=== PATIENT | female | born 1990 | race Hispanic/Latino ===

== ENCOUNTER 2018-08-29 17:43 | Emergency (ER) | payer SELFPAY ==
--- NOTE | 2018-08-29 21:24 | ULT ---
PELVIC SONOGRAM TRANSABDOMINAL AND TRANSVAGINAL IMAGING WITH DUPLEX EVALUATION 08/29/18 HISTORY: Pelvic pain. Fibroid disease. FINDINGS: Uterus has a heterogeneous echotexture and is 10.4 cm. Endometrium is 0.8 cm. Physiologic amount of free fluid within the pelvis. At the level of the cervix, a fairly homogeneous, slightly hypoechoic r ounded mass measures up to 3.5 cm greatest diameter. IMPRESSION: Lower uterine segment dominant fibroid, 3.5 cm. Enlarged uterus may also be related to diffuse fibroid disease. POS: FLOR
--- NOTE | 2018-08-30 02:14 | CON ---
ER CONSULTATION DATE OF CONSULTATION: 08/29/2018 CONSULTING PHYSICIAN: Skyler Capps MD CHIEF COMPLAINT: "Something protruding from the vagina." HISTORY OF PRESENT ILLNESS: Ms. Rojas is a 28-year-old [place] who presents complaining of a mass protruding from her vagina which she has noticed over the last 2 weeks. She denies bleeding or pelvic pain. She states that her last pelvic exam was 3 years ago and that she had a normal Pap smear at that time. PAST OBSTETRICAL HISTORY: Uncomplicated vaginal delivery x2. PAST MEDICAL HISTORY: None. PAST SURGICAL HISTORY: Tonsillectomy. CURRENT MEDICATIONS: None. ALLERGIES: No known allergies. SOCIAL HISTORY: Denies tobacco or alcohol use. Denies illicit drug use. FAMILY HISTORY: Denies pelvic malignancies. REVIEW OF SYSTEMS: Denies nausea, vomiting, fever, or chills. PHYSICAL EXAMINATION: VITAL SIGNS: In the ER, her vital signs were stable. She is afebrile. ABDOMEN: Soft and nontender. There is no guarding or rebound. There is no mass that protrudes above the pelvic brim. PELVIC: Shows a fleshy polypoid mass extending into the vagina on a thick pedicle from the cervix. No bleeding from the mass is seen and this mass appears to be most consistent with a very large polyp. This does not appear to be a prolapsed fibroid. Ultrasound shows a heterogeneous uterus 10.4 cm in length. The endometrial stripe is 0.8 cm. At the level of the cervix, a hypoechoic mass, measuring 3.5 cm is seen. ASSESSMENT: Large cervical polyp. PLAN: At this time, I have discussed my findings with the patient. The patient states that she has an appointment with [facility] early next week for complete exam there. Due to the fact that this is not an emergent situation at present, we will allow her to follow up as an outpatient for polypectomy. CAIT
== END 2018-08-29 22:18 | disposition home or self-care (01) ==
LOC: ERS 17:43
DX: N84.1 Polyp of cervix uteri (principal); F41.9 Anxiety disorder, unspecified
CPT/HCPCS: 76856

== ENCOUNTER 2021-02-22 11:31 | Emergency (ER) | payer SELFPAY ==
[2021-02-22 12:02] LABS: #Lymphocytes 1.5 thou/uL (1.20-3.40); #Monocytes 0.8 thou/uL (0.11-0.59); #Neutrophils 11.2 thou/uL (1.40-6.50); %Eosinophils 0.3 % (0.0-10.0); %Lymphocytes 11.2 % (21.0-51.0); %Monocytes 5.6 % (0.0-10.0); %Neutrophils 82.9 % (42.0-75.0); Mean Corpuscular HGB CONC 33.1 g/dL (32.0-36.0); Mean Corpuscular Hemoglobin 25.7 pg (27.0-31.0); Mean Corpuscular Volume 77.8 fL (78.0-98.0); Mean Platelet Volume 7.1 fL (7.4-10.4); Platelet Count 313 thou/uL (130-400); RBC Distribution Width 12.7 % (11.5-14.5); Red Blood Cell (RBC) Count 5.06 mill/uL (4.20-5.40); White Blood Cell (WBC) Count 13.5 thou/uL (4.8-10.8)
[2021-02-22 12:22] LABS: ALT (SGPT) 16 U/L (8-55); AST (SGOT) 13 U/L (5-34); Albumin 4.1 g/dL (3.5-5.0); Alkaline Phosphatase 86 U/L (40-110); Anion Gap 14 mmol/L (10-20); BUN (Urea Nitrogen) 11 mg/dL (7.0-18.7); Bilirubin, Total 0.5 mg/dL (0.2-1.2); Calc. Creatinine Clearance 0 mL/min (70-130); Calcium 8.9 mg/dL (7.8-10.44); Carbon Dioxide 24 mmol/L (22-29); Chloride 104 mmol/L (98-107); Globulin 2.5 g/dL (2.4-3.5); Glucose 118 mg/dL (70-105); Lipase 7 U/L (8-78); Potassium 4.2 mmol/L (3.5-5.1); Protein, Total 6.6 g/dL (6.0-8.3); Sodium 138 mmol/L (136-145)
[2021-02-22] MEDS ORDERED: Iopamidol-370 76% 500 ML 1 ML ONE (12:24)
[2021-02-22] MEDS ORDERED: Morphine 4 MG/ML VIAL ONE ×2 (12:39→16:13)
[2021-02-22] MEDS ORDERED: Ondansetron PF 4 MG/2 ML Vial ONE ×2 (12:40→16:18)
[2021-02-22 12:49] LABS: BHCG - Serum Negative (NEGATIVE); Pregs Control Background? CLEAR/WHITE (CLR/WHITE); Pregs Control Bar Appear? YES (CONTROL BAR)
[2021-02-22] MEDS ORDERED: cefTRIAXone\\ROCEPHIN 2 GM VIAL ONE ×2 (15:08→15:10)
[2021-02-22] MEDS ORDERED: metroNIDAZOLE 500 MG in Premix Bag 1 BAG IVPB SCH (15:30)
[2021-02-22 15:40] LABS: Bacteria/HPF None Seen HPF (None Seen); Bilirubin Negative (Negative); Blood, Urine Negative (Negative); Clarity Clear (Clear); Glucose, Urine (Dipstick) Normal (Negative); Ketone, Urine Negative (Negative); Leukocyte 75 Leu/uL (Negative); Nitrite Negative (Negative); Protein, Urine (Dipstick) Negative (Neg-Trace); RBC/HPF 0-3 HPF (0-3); Urobilinogen Normal mg/dL (Less than 2); WBC/HPF 0-3 HPF (0-3)
[2021-02-22 15:42] LABS: Pregnancy Test - Urine (BHCG) Negative (Negative); Pregu Control Background? CLEAR/WHITE (CLR/WHITE); Pregu Control Bar Appear? YES (CONTROL BAR); Specific Gravity 1.049 (1.002-1.036)
[2021-02-22 15:43] LABS: Specific Gravity, Urine 1.049 (1.002-1.036)
[2021-02-26 20:18] LABS: GC by PCR Inconclusive (NotDetected)
[2021-02-26 20:19] LABS: Chlamydia by PCR Inconclusive (NotDetected)
== END 2021-02-22 16:55 | disposition short-term general hospital (02) ==
LOC: ERS 11:31
DX: A41.9 Sepsis, unspecified organism (principal); N70.93 Salpingitis and oophoritis, unspecified; N73.9 Female pelvic inflammatory disease, unspecified
CPT/HCPCS: 36415; 74177; 80053; 81003; 81015; 81025; 83605; 83690; 84703; 85025; 87040; 87480; 87491; 87510; 87591; 87660; 96365; 96375; 96376; J0696; J2270; J2405; J3490; Q9967

== ENCOUNTER 2021-09-04 04:39 | Emergency (ER) | payer SELFPAY ==
[2021-09-04 05:57] LABS: Pregnancy Test - Urine (BHCG) Negative (Negative); Pregu Control Background? CLEAR/WHITE (CLR/WHITE); Pregu Control Bar Appear? YES (CONTROL BAR); Specific Gravity 1.021 (1.002-1.036)
[2021-09-04] MEDS ORDERED: HYDROcodone/Acetaminophen 10/325 mg Tablet ONE (06:48)
[2021-09-04] MEDS ORDERED: Iopamidol-370 76% 500 ML 1 ML ONE (13:27)
== END 2021-09-04 08:44 | disposition home or self-care (01) ==
LOC: ERS 04:39
DX: S70.02XA Contusion of left hip, initial encounter (principal); S30.0XXA Contusion of lower back and pelvis, initial encounter; S00.12XA Contusion of left eyelid and periocular area, initial encounter; W19.XXXA Unspecified fall, initial encounter
CPT/HCPCS: 72192; 81025; Q9967

== ENCOUNTER 2021-10-18 09:58 | Emergency (ER) | payer SELFPAY | END 2021-10-18 11:05 | disposition left against medical advice (07) | LOC: ERS 09:58 | DX: Z53.21 Procedure and treatment not carried out due to patient leaving prior to being seen by health care provider (principal) ==

== ENCOUNTER 2022-02-20 09:21 | Inpatient (IN) | payer SELFPAY ==
[2022-02-20 10:03] LABS: BHCG - Serum Negative (NEGATIVE); Pregs Control Background? CLEAR/WHITE (CLR/WHITE); Pregs Control Bar Appear? YES (CONTROL BAR)
[2022-02-20 10:15] LABS: ALT (SGPT) 11 U/L (8-55); AST (SGOT) 12 U/L (5-34); Albumin 4.2 g/dL (3.5-5.0); Alkaline Phosphatase 85 U/L (40-110); Anion Gap 15 mmol/L (10-20); BUN (Urea Nitrogen) 9 mg/dL (7.0-18.7); Bilirubin, Total 0.8 mg/dL (0.2-1.2); Calc. Creatinine Clearance 0 mL/min (70-130); Calcium 9.2 mg/dL (7.8-10.44); Carbon Dioxide 23 mmol/L (22-29); Chloride 97 mmol/L (98-107); Globulin 2.9 g/dL (2.4-3.5); Glucose 111 mg/dL (70-105); Potassium 3.6 mmol/L (3.5-5.1); Protein, Total 7.1 g/dL (6.0-8.3); Sodium 131 mmol/L (136-145)
[2022-02-20] MEDS ORDERED: Ondansetron PF 4 MG/2 ML Vial ONE (10:15)
[2022-02-20] MEDS ORDERED: Ketorolac Tromethamine 30 MG/ML VIAL ONE (10:15)
[2022-02-20 10:37] LABS: Magnesium 1.6 mg/dL (1.6-2.6)
[2022-02-20 10:49] LABS: #Lymphocytes 0.9 thou/uL (1.20-3.40); #Monocytes 0.9 thou/uL (0.11-0.59); #Neutrophils 11.5 thou/uL (1.40-6.50); %Basophils 0.2 % (0.0-1.0); %Eosinophils 0.1 % (0.0-10.0); %Lymphocytes 6.8 % (21.0-51.0); %Monocytes 6.7 % (0.0-10.0); %Neutrophils 86.3 % (42.0-75.0); Mean Corpuscular HGB CONC 32.9 g/dL (32.0-36.0); Mean Platelet Volume 7.8 fL (7.4-10.4); Platelet Count 260 thou/uL (130-400); RBC Distribution Width 13.3 % (11.5-14.5); Red Blood Cell (RBC) Count 4.98 mill/uL (4.20-5.40); White Blood Cell (WBC) Count 13.3 thou/uL (4.8-10.8)
[2022-02-20] MEDS ORDERED: cefTRIAXone\\ROCEPHIN 2 GM VIAL ONE (11:13)
[2022-02-20 11:44] LABS: Bacteria/HPF 2+ HPF (None Seen); Bilirubin Negative (Negative); Blood, Urine 2+ (Negative); Clarity Turbid (Clear); Glucose, Urine (Dipstick) Normal (Negative); Ketone, Urine 10 mg/dL (Negative); Leukocyte 500 Leu/uL (Negative); Nitrite Negative (Negative); Protein, Urine (Dipstick) 70 mg/dL (Neg-Trace); RBC/HPF 21-50 HPF (0-3); Squamous Epithelial 0-3 HPF (0-3); Urobilinogen Normal mg/dL (Less than 2); WBC/HPF Greater than 50 HPF (0-3); pH, Urine 7.5 (5.0-9.0)
[2022-02-20 11:47] LABS: Pregnancy Test - Urine (BHCG) Negative (Negative); Pregu Control Background? CLEAR/WHITE (CLR/WHITE); Pregu Control Bar Appear? YES (CONTROL BAR)
[2022-02-20] MEDS ORDERED: Morphine 4 MG/ML VIAL ONE (12:33)
[2022-02-20 14:13] VITALS: BMI 33.7
[2022-02-20] MEDS: Sodium Chloride 0.9% 1,000 ML IV SCH ×2 (14:33→22:26)
[2022-02-20] MEDS: Acetaminophen 325 MG TAB PO PRN ×2 (17:03→22:21)
[2022-02-20] MEDS ORDERED: HYDROcodone/Acetaminophen 5/325 mg Tablet PO PRN (17:35)
[2022-02-20] MEDS ORDERED: Ibuprofen 800 MG TAB PO SCH (18:45)
[2022-02-20] MEDS: Ondansetron ODT 4 MG TAB PO PRN (19:23)
[2022-02-20 23:00] LABS: SARS-CoV-2 PCR by NAA Not Detected (NotDetected)
[2022-02-21] MEDS: HYDROcodone/Acetaminophen 5/325 mg Tablet PO PRN ×2 (03:24→08:52)
[2022-02-21] MEDS: Ondansetron ODT 4 MG TAB PO PRN (03:34)
[2022-02-21] MEDS ORDERED: Morphine 2 MG/ML VIAL SLOW IVP SCH (03:45)
[2022-02-21] MEDS: Sodium Chloride 0.9% 1,000 ML IV SCH ×2 (04:02→14:26)
[2022-02-21 05:58] LABS: #Lymphocytes 0.6 thou/uL (1.20-3.40); #Neutrophils 7.1 thou/uL (1.40-6.50); %Basophils 0.2 % (0.0-1.0); %Eosinophils 0.1 % (0.0-10.0); %Lymphocytes 6.5 % (21.0-51.0); %Monocytes 11.5 % (0.0-10.0); %Neutrophils 81.8 % (42.0-75.0); Hemoglobin 11.4 g/dL (12.0-16.0); Mean Corpuscular HGB CONC 33.1 g/dL (32.0-36.0); Mean Corpuscular Hemoglobin 26.6 pg (27.0-31.0); Mean Corpuscular Volume 80.2 fL (78.0-98.0); Mean Platelet Volume 7.5 fL (7.4-10.4); Platelet Count 181 thou/uL (130-400); RBC Distribution Width 13.1 % (11.5-14.5); Red Blood Cell (RBC) Count 4.28 mill/uL (4.20-5.40); White Blood Cell (WBC) Count 8.6 thou/uL (4.8-10.8)
[2022-02-21 06:23] LABS: Chloride 107 mmol/L (98-107); Potassium 3.3 mmol/L (3.5-5.1); Sodium 136 mmol/L (136-145)
[2022-02-21 06:24] LABS: Anion Gap 12 mmol/L (10-20); BUN (Urea Nitrogen) 6 mg/dL (7.0-18.7); Calc. Creatinine Clearance 189 mL/min (70-130); Calcium 7.8 mg/dL (7.8-10.44); Carbon Dioxide 20 mmol/L (22-29); Glucose 129 mg/dL (70-105)
[2022-02-21] MEDS: Acetaminophen 325 MG TAB PO PRN ×2 (08:51→14:25)
[2022-02-21] MEDS: Ondansetron PF 4 MG/2 ML Vial IVP PRN ×2 (08:55→15:06)
[2022-02-21] MEDS ORDERED: Enoxaparin Sodium 40 MG/0.4 ML SYRINGE SC SCH (09:00)
[2022-02-21] MEDS ORDERED: cefTRIAXone\\ROCEPHIN 1 GM in Sodium Chloride 0.9% 100 ML IVPB SCH (11:00)
[2022-02-21] MEDS ORDERED: cefTRIAXone\\ROCEPHIN 2 GM in Sodium Chloride 0.9% 100 ML IVPB SCH (11:00)
[2022-02-21] MEDS ORDERED: Ibuprofen 600 MG TAB PO SCH (16:45)
[2022-02-21] MEDS ORDERED: Promethazine HCl 25 MG in Sodium Chloride 0.9% 50 ML IVPB SCH (17:00)
[2022-02-22] MEDS: Acetaminophen 325 MG TAB PO PRN (00:06)
[2022-02-22] MEDS: Sodium Chloride 0.9% 1,000 ML IV SCH ×2 (00:08→08:43)
[2022-02-22] MEDS ORDERED: Promethazine 25 MG TAB PO PRN (00:16)
[2022-02-22] MEDS ORDERED: Melatonin 3 MG TAB PO PRN (00:16)
[2022-02-22] MEDS ORDERED: Promethazine HCl 12.5 MG in Sodium Chloride 0.9% 50 ML IVPB SCH (01:00)
[2022-02-22] MEDS ORDERED: Promethazine HCl 12.5 MG in Sodium Chloride 0.9% 100 ML IVPB SCH (01:00)
[2022-02-22 08:01] VITALS: BP 131/84; TEMP 99.5
[2022-02-22 08:17] LABS: Anion Gap 11 mmol/L (10-20); BUN (Urea Nitrogen) Less than 4 mg/dL (7.0-18.7); Calc. Creatinine Clearance 198 mL/min (70-130); Carbon Dioxide 24 mmol/L (22-29); Chloride 104 mmol/L (98-107); Glucose 122 mg/dL (70-105); Potassium 3.3 mmol/L (3.5-5.1); Sodium 136 mmol/L (136-145)
[2022-02-22] MEDS ORDERED: Ciprofloxacin 500 MG TAB PO SCH (20:00)
== END 2022-02-22 09:30 | disposition home or self-care (01) | DRG 872 ==
LOC: ERS 09:21 → T4-A 12:39
PROVIDERS: ADMIT Family Medicine; ATTEND Internal Medicine
DX: A41.9 Sepsis, unspecified organism (principal); N10 Acute pyelonephritis; E87.1 Hypo-osmolality and hyponatremia; F41.9 Anxiety disorder, unspecified; F32.A Depression, unspecified; F17.210 Nicotine dependence, cigarettes, uncomplicated; E66.9 Obesity, unspecified; E86.0 Dehydration; Z68.33 Body mass index [BMI] 33.0-33.9, adult; Z90.09 Acquired absence of other part of head and neck
CPT/HCPCS: 36415; 74176; 80048; 80053; 81003; 81015; 81025; 83605; 83735; 84703; 85025; 87040; 87077; 87086; 87186; 93005; 93010; J0696; J1650; J1885; J2270; J2405; J2550; J3490; J7050; Q0162; Q0169; U0003; U0005

== ENCOUNTER 2024-04-21 15:47 | Emergency (ER) | payer SELFPAY ==
[2024-04-21 19:03] LABS: Bilirubin Negative (Negative); Blood, Urine Negative (Negative); CAUTI Indications for Culture Dysuria,urgency,freq; Clarity Turbid (Clear); Glucose, Urine (Dipstick) Normal (Negative); Ketone, Urine Negative (Negative); Leukocyte 75 Leu/uL (Negative); Nitrite Negative (Negative); Protein, Urine (Dipstick) 20 mg/dL (Neg-Trace); Specific Gravity, Urine 1.027 (1.002-1.036); Squamous Epithelial 0-3 HPF (0-3); Urobilinogen Normal mg/dL (Less than 2)
[2024-04-21 19:04] LABS: Bacteria/HPF 1+ HPF (None Seen)
[2024-04-21 19:06] LABS: Pregnancy Test - Urine (BHCG) Negative (Negative); Pregu Control Background? CLEAR/WHITE (CLR/WHITE); Pregu Control Bar Appear? YES (CONTROL BAR); Specific Gravity 1.027 (1.002-1.036); Urine Culture Reflex No No
[2024-04-21] MEDS ORDERED: Lidocaine 1% MPF 2 ML VIAL ONE (19:19)
[2024-04-21] MEDS ORDERED: cefTRIAXone (ROCEPHIN) 500 MG VIAL ONE (19:19)
[2024-04-21 21:37] LABS: Chlamydia by PCR, Vaginal Swab Not Detected (NotDetected); GC by PCR, Vaginal Swab Not Detected (NotDetected)
== END 2024-04-21 19:47 | disposition home or self-care (01) ==
LOC: ERS 15:47
DX: R35.0 Frequency of micturition (principal); Z20.2 Contact with and (suspected) exposure to infections with a predominantly sexual mode of transmission; F17.210 Nicotine dependence, cigarettes, uncomplicated; F17.290 Nicotine dependence, other tobacco product, uncomplicated
CPT/HCPCS: 81001; 81025; 87480; 87491; 87510; 87591; 87660; 96372; 99283; J0696